=== PATIENT | female | born 1960 | race Caucasian/White ===

== ENCOUNTER 2023-11-16 04:27 | Emergency (ER) | payer SELFPAY ==
[~2023-11-16] VITALS: Ht 160 cm; Wt 63.0 kg
[2023-11-16] MEDS: NALOXONE HCL 0.4 MG/ML VIAL IV ONE (04:55)
[2023-11-16 05:02] VITALS: PULSE 84; RESP 15; O2SAT 96
[2023-11-16] MEDS: NALOXONE HCL 1MG/ML 2ML SYRINGE ONE (05:40)
[2023-11-16 06:08] LABS: Base Excess 0.8 mmol/L (-2.0-2.0)
[2023-11-16 06:08] LABS: Basophils # (auto) 0 10 ^3/uL (0-0.2); Basophils % (auto) 0.2 % (0.0-2.0); Eosinophils # (auto) 0.1 10 ^3/uL (0-0.8); Eosinophils % (auto) 0.5 % (0.0-7.0); Hematocrit 44.7 % (36.0-46.0); Hemoglobin 14.4 g/dL (12.2-16.2); Lymphocytes # (auto) 4.2 10 ^3/uL (0.4-5.4); Lymphocytes % (auto) 27.6 % (10.0-50.0); Mean Corpuscular Hemoglobin 28.8 pg (28.0-32.0); Mean Corpuscular Hgb Conc. 32.3 g/dL (32.0-36.0); Mean Corpuscular Volume 89.2 fL (80.0-100.0); Monocytes # (auto) 0.8 10 ^3/uL (0-1.3); Monocytes % (auto) 5.2 % (0.0-12.0); Neutrophils % (auto) 66.5 % (37.0-80.0); Red Blood Cells 5.02 10^6/uL (4.0-5.20); Red Cell Distribution Width 13.9 % (11.8-14.3); White Blood Cell 15.1 10^3/uL (4.4-10.8)
[2023-11-16 06:23] LABS: INR 1.04 (0.9-1.15); Partial Thromboplastin Time 24.7 SEC (24.5-34.5); Prothrombin Time 10.9 sec (9.3-11.8)
[2023-11-16 06:29] LABS: Alanine Aminotransferase 20 U/L (7-40); Alkaline Phosphatase 67 U/L (46-116); Anion Gap 10 (5-15); Aspartate Aminotransferase 24 U/L (13-40); Blood Alcohol < 3.0 mg/dL (<10); Blood Urea Nitrogen 8 mg/dL (9-23); Calcium 9.2 mg/dL (8.5-10.1); Carbon Dioxide 24 mmol/L (20-30); Chloride 106 mmol/L (98-107); Glucose 114 mg/dL (74-106); Potassium 3.6 mmol/L (3.5-5.1); Sodium 140 mmol/L (136-145)
[2023-11-16 06:30] LABS: Bilirubin, Total 0.8 mg/dL (0.2-1.0); Total Protein 6.5 g/dL (5.7-8.2)
[2023-11-16 06:33] LABS: Lactic Acid w/Reflex 3.8 mmol/L (0.4-2.0)
[2023-11-16] MEDS: ONDANSETRON HCL 4 MG/2 ML VIAL IV ONE (07:10)
[2023-11-16 07:20] VITALS: PULSE 97; RESP 18; O2SAT 95
[2023-11-16] MEDS ORDERED: CEPH250C PO (07:22)
[2023-11-16 07:55] LABS: Amphetamine Screen, Urine Neg (NEGATIVE); Barbiturate Scree,Urine Neg (NEGATIVE); Benzodiazephine Screen, Urine Neg (NEGATIVE)
[2023-11-16 07:56] LABS: Cannabinoid Screen, Urine Neg (NEGATIVE); Cocaine Screen, Urine Neg (NEGATIVE); Opiate Scree,Urine Neg (NEGATIVE); Phencyclidine Screen, Urine Neg (NEGATIVE)
[2023-11-16 08:05] LABS: Urine Bacteria NONE SEEN /hpf (None Seen); Urine Blood Negative /uL (Negative); Urine Clarity Clear (Clear); Urine Color Yellow (Yellow); Urine Hyaline Cast FEW /lpf (0 - 2); Urine Mucus FEW (None Seen); Urine Protein, UAD Negative (Negative); Urine Specific Gravity 1.008 (1.001-1.035); Urine Urobilinogen Normal (Negative); Urine WBC 12 /hpf (0 - 5); Urine pH 7.5 (5.0-8.0)
[2023-11-16 09:24] VITALS: BP 162/81; PULSE 98; RESP 17; TEMP 98.2; O2SAT 95
[2023-11-17] MEDS ORDERED: SULF800T23 PO (04:14)
== END 2023-11-16 09:54 | disposition home or self-care (01) ==
LOC: ER 04:27 → EDBD 04:27 → ER 09:49
DX: N39.0 Urinary tract infection, site not specified (principal); R55 Syncope and collapse; Z88.8 Allergy status to other drugs, medicaments and biological substances; Z79.899 Other long term (current) drug therapy
CPT/HCPCS: 36415; 36600; 70450; 71045; 80053; 80307; 80320; 81001; 82805; 83605; 84484; 85025; 85379; 85610; 85730; 87040; 93005; 96374; 96375; 99285; J2310; J2405; 87077; 87186